=== PATIENT | female | born 1955 | race Caucasian/White ===

== ENCOUNTER → 2017-12-31 | Outpatient (CLI) | payer BC ==
--- NOTE | 2017-12-31 12:38 | BD ---
EXAMINATION TYPE: MG DEXA axial skeleton. DATE OF EXAM: 12/31/2017 COMPARISON: 01.26.2010 CLINICAL HISTORY: 62 YR OLD FEMALE: ICD-10 CODE: Z78.0 POST MENOPAUSAL W/O HRT Height: 61 Weight: 153 FRAX RISK QUESTIONS: Alcohol (3 or more units per day): NO Family History (Parent hip fracture): NO Glucocorticoids (More than 3mos): NO (Ex: prednisone, prednisolone, methylprednisolone, dexamethasone, and hydrocortisone). History of Fracture in Adulthood: YES Secondary Osteoporosis: NO 1. Type 1 Diabetes: NO 2. Hyperthyroidism: NO 3. Menopause before 45: NO..AT 44 YRS OLD 4. Malnutrition: NO 5. Chronic liver disease: NO Rheumatoid Arthritis: NO Current Tobacco Use: QUIT 6 MOS AGO RISK FACTORS HISTORY OF: RT ANKLE, > AGE 49 YRS OLD Family History of Osteoporosis: NO Active: GETTING THERE Diet low in dairy products/other sources of calcium: YES A BIT Postmenopausal woman: PARTIAL HYST AT 44 YRS OLD NO HORMONES Hyperparathyroidism: NO Adrenal Insufficiency: NO MEDICATIONS: Thyroid Medications: SYNTHROID, FOR ABOUT 8 YRS Additional Medications: WELLBUTRIN, ASPIRIN, CALCIUM AND VIT D, VALIUM PRN, VICODIN Additional History: TUMOR ON LT LUNG WITH PHANTOM PAINS EXAM MEASUREMENTS: Bone mineral densitometry was performed using the [employer]. Bone mineral density as measured about the Lumbar spine is: ----- L1-L4(G/cm2): 0.974 T Score Values are as follows: ----- L1: -2.5 ----- L2: -3.1 ----- L3: -1.7 ----- L4: -1.1 ----- L1-L4: -2.0 Bone mineral density has: Increased 4.1% SINCE 01.26.2010 Bone mineral density about the R hip (g/cm2): 0.951 Bone mineral density about the L hip (g/cm2): 0.942 T Score values are as follows: -----R Neck: -2.1 -----L Neck: -2.1 -----R Total: -0.4 -----L Total: -0.5 Bone mineral density has: Increased 0.3% SINCE 01.26.2010 FRAX%S: THERE IS A 5.9% CHNACE OF A MAJOR OSTEOPOROTIC FX AND A 2.1% FOR HIP FX....PROBABILITY OF FX IN 10 YRS TIME IMPRESSION: Osteopenia (T Score between -2.5 and -1) with regards to the bilateral hips and lumbar spine although values approach osteoporosis with regards to the lumbar spine. There is slightly increased risk of fracture and the patient may be considered for treatment. Re-Screen 2-5 years. NOTE: T-SCORE=SD OF THE YOUNG ADULT MEAN.
--- NOTE | 2018-01-01 12:05 | MM ---
Reason for exam: screening (asymptomatic). Last mammogram was performed 1 year and 5 months ago. History: Patient is postmenopausal. Physical Findings: A clinical breast exam by your physician is recommended on an annual basis and results should be correlated with mammographic findings. MG Screening Mammo w CAD Bilateral CC and MLO view(s) were taken. Prior study comparison: August 07, 2016, bilateral MG 3d diag mammo w/cad [facility]. February 26, 2015, bilateral MG screening mammo w CAD. The breast tissue is extremely dense which could obscure a lesion on mammography. Benign calcifications bilaterally. No suspicious abnormality. No significant changes when compared with prior studies. ASSESSMENT: Benign, BI-RAD 2 RECOMMENDATION: Routine screening mammogram of both breasts in 1 year.
== END | disposition home or self-care (01) ==
LOC: RADMAMWWP 08:09
PROVIDERS: ATTEND Obstetrics & Gynecology
DX: Z12.31 Encounter for screening mammogram for malignant neoplasm of breast (principal); M85.852 Other specified disorders of bone density and structure, left thigh; M85.851 Other specified disorders of bone density and structure, right thigh; M85.88 Other specified disorders of bone density and structure, other site; Z78.0 Asymptomatic menopausal state
CPT/HCPCS: 77067; 77080

== ENCOUNTER → 2019-04-07 | Outpatient (CLI) | payer MEDICARE ==
--- NOTE | 2019-04-08 15:02 | MR ---
EXAMINATION TYPE: MR cervical spine wo/w con DATE OF EXAM: 04/07/2019 COMPARISON: None HISTORY: Rt shoulder pain into rt arm and fingers, Headaches TECHNIQUE: Multiplanar, multisequence images of the cervical spine were acquired utilizing 7.5 mL intravenous Ga davist gadolinium contrast. Diffusion weighted imaging was performed. C2-C3: No evidence for degenerative disc disease. No disc bulge/herniation or protrusion. No Canal stenosis. Foramina are patent bilaterally. C3-C4: Posterior broad-based disc bulge causes minimal anterior mass effect on the thecal sac and may contact the cervical cord. No significant spinal stenosis or foraminal encroachment. C4-C5: Posterior broad-based disc bulge causes slight anterior mass effect on the thecal sac. No sign ificant stenosis or foraminal encroachment. C5-C6: Posterior broad-based disc bulge is noted. Uncovertebral joint hypertrophy encroaches mildly o n the trauma. No significant central stenosis. C6-C7: Posterior broad-based disc bulge causes slight anterior mass effect on the thecal sac. Uncover tebral joint hypertrophy encroaches somewhat on the foramina left greater than right. C7-T1: No evidence for degenerative disc disease. No disc bulge/herniation or protrusion. No Canal stenosis. Foramina are patent bilaterally. Cervical segments are intact. There is normal alignment. Cervical spinal cord is of normal signal. Craniovertebral junction relationships are within normal limits. Multilevel spondylosis is present. Some loss of disc height signal is present at the intervertebral levels especially C3-4, C4-5, C5-6 and C6-7. No abnormal enhancement following contrast instillation. IMPRESSION: Multilevel degenerative disc disease as described, multilevel foraminal encroachment.
== END | disposition home or self-care (01) ==
LOC: RADMRIMAIN 16:02
PROVIDERS: ATTEND Family Medicine
DX: M48.02 Spinal stenosis, cervical region (principal); M50.31 Other cervical disc degeneration, high cervical region
CPT/HCPCS: 72156; A9585

== ENCOUNTER → 2019-10-09 | Outpatient (CLI) | payer MEDICARE ==
--- NOTE | 2019-10-11 15:59 | MR ---
EXAMINATION TYPE: MR brain wo/w con DATE OF EXAM: 10/09/2019 COMPARISON: 03/07/2010 HISTORY: 64-year-old female with Memory loss. R41.3 TECHNIQUE: Multiplanar, multisequence images of the brain and brainstem were acquired before and aft er administration of 7 mL IV Gadavist. Diffusion weighted imaging is performed. FINDINGS: No evidence for acute infarction, hemorrhage, mass, mass effect, midline shift, herniation, effacemen t of basal cisterns, or extra-axial fluid collection. The ventricles and sulci are age-appropriate. Major intracranial flow voids are intact. T2/FLAIR weighted sequences show moderate to severe scattered bright white matter change both cerebra l hemispheres within the subcortical, deep white matter, and periventricular regions. Approximately 5 0 foci in the right and 60-70 foci of the left. These changes show mild progression from 03/07/2010. Midline structures demonstrate normal morphology. The craniocervical junction is normal. Post contrast images demonstrate no evidence of pathologic enhancement. Dural venous sinuses are pat ent. Rightward nasal septal deviation. The visualized sinuses are clear and the globes are intact. IMPRESSION: 1. Redemonstrated T2 bright white matter change with mild progression from 2009 now with moderate to severe scattered burden. Findings are nonspecific and probably relate to progressive changes of chron ic small vessel ischemic disease. Chronic migraines, Lyme's disease/vasculitis, and demyelinating dis ease are some differential considerations. 3. No enhancing intracranial lesions.
== END | disposition home or self-care (01) ==
LOC: RADMRIMAIN 15:01
PROVIDERS: ATTEND Psychiatry & Neurology Neurology
DX: G43.909 Migraine, unspecified, not intractable, without status migrainosus (principal); A69.20 Lyme disease, unspecified; I77.6 Arteritis, unspecified; G37.9 Demyelinating disease of central nervous system, unspecified; G54.0 Brachial plexus disorders; R41.3 Other amnesia
CPT/HCPCS: 70553; A9585

== ENCOUNTER → 2019-10-10 | Outpatient (CLI) | payer MEDICARE ==
--- NOTE | 2019-10-11 03:30 | MR ---
EXAMINATION TYPE: MR brachial plexus RT wo/w con DATE OF EXAM: 10/10/2019 COMPARISON: HISTORY: Rt side pain and numbness CONTRAST: Standard multiplanar, multisequence MRI departmental protocol utilizing 7 mL intravenous Gadavist samreen olinium contrast. FINDINGS: Cervical vertebra have fairly normal spacing and alignment for the patient's age. There is no compression fracture. There are small posterior disc bulges from C3 to C7. There is no evidence of cervical spinal stenosis. I see no cervical paraspinal mass. Contrast images show no pathologic enha ncement. There is normal contrast opacification of the carotid arteries and the vertebral arteries. T here is normal contrast opacification of the jugular veins. I see no focal bone destruction. IMPRESSION: Negative exam. No evidence of brachial plexus abnormality. No spinal stenosis. No fracture. IMPRESSION:
== END | disposition home or self-care (01) ==
LOC: RADMRIMAIN 16:33
PROVIDERS: ATTEND Psychiatry & Neurology Neurology
DX: R41.3 Other amnesia (principal)
CPT/HCPCS: 71552; A9585

== ENCOUNTER → 2020-08-09 | Outpatient (CLI) | payer MEDICARE ==
--- NOTE | 2020-08-10 12:02 | MM ---
Reason for exam: screening (asymptomatic). Last mammogram was performed 1 year and 3 months ago. History: Patient is postmenopausal. Physical Findings: A clinical breast exam by your physician is recommended on an annual basis and results should be correlated with mammographic findings. MG Screening Mammo w CAD Bilateral CC and MLO view(s) were taken. Prior study comparison: April 24, 2019, bilateral MG screening mammo w CAD. December 31, 2017, bilateral MG screening mammo w CAD. The breast tissue is heterogeneously dense. This may lower the sensitivity of mammography. Finding: There are typically benign vascular, dystrophic, round calcifications in both breasts. There is no discrete abnormality. ASSESSMENT: Benign, BI-RAD 2 RECOMMENDATION: Routine screening mammogram of both breasts in 1 year.
== END | disposition home or self-care (01) ==
LOC: RADMAMWWP 10:34
PROVIDERS: ATTEND Family Medicine
DX: Z12.31 Encounter for screening mammogram for malignant neoplasm of breast (principal)
CPT/HCPCS: 77067

== ENCOUNTER → 2022-08-01 | Outpatient (CLI) | payer MEDICARE ==
--- NOTE | 2022-08-02 08:16 | MM ---
Reason for Exam: Screening (asymptomatic). Last mammogram was performed 1 year(s) and 11 month(s) ago. Patient History: Menarche at age 14. First Full-Term at age 18. Right ovary removed at age 36. Hysterectomy at age 36. Postmenopausal. Risk Values: Liz 5 year model risk: 1.1%. NCI Lifetime model risk: 3.7%. Prior Study Comparison: 02/26/2015 Bilateral Screening Mammogram, [facility]. 08/07/2016 Bilateral Diagnostic Mammogram, [facility]. 12/31/2017 Bilateral Screening Mammogram, [facility]. 04/24/2019 Bilateral Screening Mammogram, [facility]. 08/09/2020 Bilateral Screening Mammogram, [facility]. Tissue Density: The breast tissue is heterogeneously dense. This may lower the sensitivity of mammography. Findings: Analyzed By CAD. There is benign appearing vascular calcification bilaterally redemonstrated. There is benign-appearing dystrophic calcification in the left breast again seen. There is no suspicious new group of microcalcifications or new suspicious mass in either breast. Overall Assessment: Benign, BI-RAD 2 Management: Screening Mammogram of both breasts in 1 year. A clinical breast exam by your physician is recommended on an annual basis and results should be correlated with mammographic findings. Electronically signed and approved by: Juvenal Parsons M.D.
== END | disposition home or self-care (01) ==
LOC: RADMAMWWP 08:32
PROVIDERS: ATTEND Family Medicine
DX: Z12.31 Encounter for screening mammogram for malignant neoplasm of breast (principal); Z78.0 Asymptomatic menopausal state
CPT/HCPCS: 77067

== ENCOUNTER → 2023-08-17 | Outpatient (CLI) | payer MEDICARE ==
--- NOTE | 2023-08-17 12:59 | CA ---
Exercise Stress Test Report Name: Char Lopez Exam Date: 08/17/2023 09:37 Exam Location: [place] Stress Ht (in): 62 Wt (lb): 145 BSA: 1.67 Ordering Phys: Samia Cooley MD Referring Phys: SAMIA COOLEY,, Technologist: Eliel Ball Age: 68 Gender: F : 1955 Procedure CPT: Indications: [id number] OTHER FATIGUE ICD-10 Codes: Patient History: Medications: Meds past 24 hrs: Pretest Chest Pain: STRESS TEST Axel Protocol Exercise Duration (min:sec): 03:[address] Depressions (mm): Angina Score: Lo Score: Resting HR (bpm): 106 Peak HR (bpm): 133 Resting BP (mmHg): 132 / 76 Peak BP (mmHg): 151 / 105 MPHR: 151 Target HR: 128 % MPHR: 88 METS: 4.7 Total Dose: Peak Dose: Atropine: Double Product: BP Response: Stress Termination: Reached target heart rate Stress Symptoms: SHORTNESS OF BREATH, DIZZINESS Stress Summary: ECG ANALYSIS Resting ECG: Stress ECG: CONCLUSIONS Patient exercised on a Axel protocol for only 3 minutes 43 seconds achieving a peak heart rate 128 beats a minute. Peak blood pressure 150 101 105 mmHg No procedures for ischemia No arrhythmias Very low workload level achieved during the stress test Dr. Cayetano Fernandez MD (Electronically Signed) Final Date: 17 August 2023 12:58
== END | disposition home or self-care (01) ==
LOC: RADNMMAIN 08:26
PROVIDERS: ATTEND Family Medicine
DX: R53.83 Other fatigue (principal); E78.00 Pure hypercholesterolemia, unspecified; R07.9 Chest pain, unspecified; Z82.49 Family history of ischemic heart disease and other diseases of the circulatory system
CPT/HCPCS: 93017

== ENCOUNTER → 2023-12-19 | Outpatient (CLI) | payer MEDICARE ==
--- NOTE | 2023-12-19 13:22 | MM ---
Reason for Exam: Screening (asymptomatic). Last mammogram was performed 1 year(s) and 5 month(s) ago. Patient History: Menarche at age 14. First Full-Term at age 18. Left ovary removed at age 40. Right ovary removed at age 36. Hysterectomy at age 36. Postmenopausal. Risk Values: Liz 5 year model risk: 1.1%. NCI Lifetime model risk: 3.5%. Prior Study Comparison: 04/24/2019 Bilateral Screening Mammogram, [facility]. 08/09/2020 Bilateral Screening Mammogram, [facility]. 08/01/2022 Bilateral MG screening mammo w CAD, [facility]. Tissue Density: There are scattered fibroglandular densities. Findings: Analyzed By CAD. There is no suspicious group of microcalcifications or new suspicious mass. Benign-appearing calcifications bilaterally. Overall Assessment: Benign, BI-RAD 2 Management: Screening Mammogram of both breasts in [address] [facility] will attempt to contact patient to return for supplemental views and ultrasound if indicated. Patient should continue monthly self-breast exams. A clinical breast exam by your physician is recommended on an annual basis. This exam should not preclude additional follow-up of suspicious palpable abnormalities. Note on Liz scores and lifetime risk: 1. A Liz score greater than 3% is considered moderate risk. If this is the case, consider specialist referral to assess eligibility for a risk reducing agent. 2. If overall lifetime risk for the development of breast cancer is 20% or higher, the patient may qualify for future screening with alternating mammogram and breast MRI. Electronically signed and approved by: Elie Mcgowan DO
== END | disposition home or self-care (01) ==
LOC: RADMAMWWP 07:05
PROVIDERS: ATTEND Family Medicine
DX: Z12.31 Encounter for screening mammogram for malignant neoplasm of breast (principal); Z78.0 Asymptomatic menopausal state
CPT/HCPCS: 77067

== ENCOUNTER → 2025-02-04 | Outpatient (CLI) | payer MEDICARE ==
--- NOTE | 2025-02-04 07:31 | MM ---
Reason for Exam: Screening (asymptomatic). Last mammogram was performed 1 year(s) and 2 month(s) ago. Patient History: Menarche at age 14. First Full-Term at age 18. Left ovary removed at age 40. Right ovary removed at age 36. Hysterectomy at age 36. Postmenopausal. Risk Values: Liz 5 year model risk: 0.8%. NCI Lifetime model risk: 2.3%. Prior Study Comparison: 08/09/2020 Bilateral Screening Mammogram, [facility]. 08/01/2022 Bilateral MG screening mammo w CAD, [facility]. 12/19/2023 Bilateral MG screening mammo w CAD, [facility]. Tissue Density: The breasts are heterogeneously dense, which may obscure small masses. Findings: Analyzed By CAD. There is no suspicious group of microcalcifications or new suspicious mass in either breast. Overall Assessment: Benign, BI-RAD 2 Management: Screening Mammogram of both breasts in 1 year. . Patient should continue monthly self-breast exams. A clinical breast exam by your physician is recommended on an annual basis. This exam should not preclude additional follow-up of suspicious palpable abnormalities. Note on Liz scores and lifetime risk: 1. A Liz score greater than 3% is considered moderate risk. If this is the case, consider specialist referral to assess eligibility for a risk reducing agent. 2. If overall lifetime risk for the development of breast cancer is 20% or higher, the patient may qualify for future screening with alternating mammogram and breast MRI. [facility], , 02/04/2025 7:28 AM. Electronically signed and approved by: Eris Ren M.D. Radiologis
== END | disposition home or self-care (01) ==
LOC: RADMAMWWP 07:05
PROVIDERS: ATTEND Family Medicine
DX: Z12.31 Encounter for screening mammogram for malignant neoplasm of breast (principal); R92.333 Mammographic heterogeneous density, bilateral breasts; Z78.0 Asymptomatic menopausal state
CPT/HCPCS: 77067

== ENCOUNTER → 2025-03-09 | Outpatient (CLI) | payer MEDICARE ==
[2025-03-09 15:05] LABS: HCT 48.5 % (37.2-46.3); HGB 15.7 g/dL (12.0-15.0); MCH 31.8 pg (27.0-32.0); MCHC 32.4 g/dL (32.0-37.0); MCV 98.4 FL (80.0-97.0); Mean Platelet Volume 9.2 FL (9.5-12.2); NRBC Per 100 WBC 0 X 10*3/uL (0.00-0.01); Platelet Count 321 X 10*3/uL (140-440); RBC 4.93 X 10*6/uL (4.10-5.20); WBC 9.47 X 10*3/uL (4.50-10.00)
[2025-03-09 15:26] LABS: Blood Urea Nitrogen 21.1 mg/dL (9.0-27.0); Carbon Dioxide 24.3 mmol/L (21.6-31.8); Chloride 106 mmol/L (96-109); Potassium 4.1 mmol/L (3.5-5.5); Sodium 143 mmol/L (135-145)
== END | disposition home or self-care (01) ==
LOC: LABWHC1 10:13
PROVIDERS: ATTEND Internal Medicine
DX: Z01.812 Encounter for preprocedural laboratory examination (principal); I25.10 Atherosclerotic heart disease of native coronary artery without angina pectoris; R06.02 Shortness of breath; R07.9 Chest pain, unspecified
CPT/HCPCS: 36415; 80051; 82565; 84520; 85027

== ENCOUNTER 2025-03-17 06:27 | Day surgery (SDC) | payer MEDICARE ==
[2025-03-13 11:52] VITALS: BMI 27.3
[~2025-03-17 06:27] MED LIST: ALPRAZolam 0.25 MG TAB PO PRN; ALPRAZolam 0.5 MG TAB PO PRN; HEPARIN SODIUM,PORCINE (1 ML) 2,500 UNIT in SODIUM CHLORIDE 0.9% 250 ML IRRIGATION PRN; HEPARIN SODIUM,PORCINE 10,000 UNIT in SODIUM CHLORIDE 0.9% 1,000 ML IRRIGATION PRN; NITROGLYCERIN SL TABS 0.4 MG TAB SUBLINGUAL PRN
[2025-03-17] MEDS: SODIUM CHLORIDE 0.9% 1,000 ML in EMPTY BAG 1 BAG IV SCH (06:50)
[2025-03-17] MEDS: IV FLUID CONTINUATION 1,000 ML IV ONE (06:51)
[2025-03-17] MEDS: ASPIRIN 325 MG TAB PO STA (07:14)
[2025-03-17 07:16] VITALS: RESP 16; TEMP 97.9
[2025-03-17] MEDS: fentaNYL (PF) 50 MCG/ML 2 ML AMP IVP ONE (07:36)
[2025-03-17] MEDS: LIDOCAINE 1% INJ 10MG/ML (20 ML MDV) SQ ONE (07:37)
[2025-03-17] MEDS: VERAPAMIL SYRINGE (5 MG/10 ML) INTRAARTER ONE (07:39)
[2025-03-17] MEDS: MIDAZOLAM 2 MG/2 ML VIAL IVP ONE (07:42)
[2025-03-17] MEDS: HEPARIN SODIUM (1,000 UNIT/ML) 1,000 UNIT in SODIUM CHLORIDE 0.9% 1,000 ML IRRIGATION ONE (07:44)
[2025-03-17] MEDS: HEPARIN SODIUM 1,000 UN/ML (10ML VL) IVP ONE (07:44)
[2025-03-17] MEDS: HEPARIN SODIUM,PORCINE (1 ML) 2,500 UNIT in SODIUM CHLORIDE 0.9% 250 ML IRRIGATION ONE (07:45)
[2025-03-17] MEDS: ADENOSINE 90 MG in SODIUM CHLORIDE 0.9% 60 ML IVP ONE (08:05)
[2025-03-17] MEDS: IOPAMIDOL-370 100ML BTL INJ ONE (08:06)
[2025-03-17] MEDS ORDERED: diazePAM 5 MG TAB PO PRN (08:15)
[2025-03-17] MEDS ORDERED: RX INFO: IV CONTRAST WAS GIVEN 1 EACH MISC MISCELLANE PRN (08:16)
[2025-03-17] MEDS: SODIUM CHLORIDE 0.9% 1,000 ML IV SCH (08:33)
[2025-03-17] MEDS: FUROSEMIDE 20 MG TAB PO SCH (11:58)
[2025-03-17 12:28] VITALS: BP 113/60; PULSE 58
--- NOTE | 2025-03-17 13:34 | P.CARDCATH ---
Description of Procedure: PROCEDURES PERFORMED: Left heart catheterization, bilateral coronary angiography, ultrasound guided arterial access, iFR, RFR, CFR, IMR of LAD INDICATION: CAD by CTA, near Heart Association class III-IV symptoms with angina CONSENT:I have discussed the risks, benefits and alternative therapies for the above-mentioned procedure and for both sedation/analgesia as well as necessary blood product administration, if indicated, as they pertain to this patient. The patient has indicated understanding and acceptance of the risks and p rocedures discussed. PROCEDURE: After the risks, benefits and alternatives of the above mentioned procedure explained in detail with the patient, informed consent was obtained. Patient was taken to the catheterization lab and prepped and draped in usual fashion. Ultrasound guidance was used to assess for arterial access. 1% lidocaine was used to anesthetize the right radial artery. A 6-B[place]an sheath was placed in the right radial artery using modified Seldinger technique and ultrasound guidance. Left coronary angiography was performed with a 5-[place] JL 3.5 catheter and right coronary angiography was performed with a 5-[place] FR5 catheter in various views. A 5-[place] FR5 catheter was inserted into the left ventricle and pressure measurements were obtained. The decision was made to perform functional assessment of the LAD. Heparin was given. Using the FL 3.5 catheter, a 0.014 pressure wire was advanced into the left main and normalized. It was then advanced in the mid LAD. iFR, CFR, IMR, FFR were performed. The wire was removed. iFR 0.92, FFR 0.87, CFR 1.8, IMR 33. The right radial sheath was removed and a TR band was placed with hemostasis achieved. The patient tolerated the procedure well. Patient was transported back to the post catheterization holding area in stable condition. Conscious Sedation: Patient was monitored under the direct supervision of myself for conscious sedation using Versed and fentanyl for a total duration of 30 minutes HEMODYNAMICS: Aorta: 138/72 LV: 130/14, LVEDP 28 SELECTIVE CORONARY ARTERIOGRAPHY: LEFT MAIN: The left main is a large caliber vessel which bifurcates into the LAD and circumflex. There is no significant stenosis. LEFT ANTERIOR DESCENDING CORONARY ARTERY: LAD is a large caliber vessel which wraps around to the apex. There is a mid LAD 20% stenosis otherwise normal LEFT CIRCUMFLEX CORONARY ARTERY: Left circumflex is a moderate caliber vessel without significant stenosis. RIGHT CORONARY ARTERY: The right coronary artery is a large caliber vessel which gives off a PDA and PLV branch and is the dominant vessel. There is no significant stenosis. FINAL IMPRESSION: 1. Relatively normal coronary arteries other than mid LAD 20% stenosis 2. Significantly elevated left sided filling pressures 3. Normal IFR/FFR 4. Abnormal CFR and IMR consistent with microvascular dysfunction PLAN: 1. Aggressive risk factor modification per most recent ACC/AHA guidelines. 2. Patient with significantly elevated filling pressures and attempt diuretics. Additionally abnormal CFR and IMR consistent with microvascular dysfunction and may consider antianginals if continues to be symptomatic.
[2025-03-17] MEDS ORDERED: ATORVASTATIN 20 MG TAB PO SCH (21:00)
[2025-03-17] MEDS ORDERED: MELATONIN 5 MG TABLET PO SCH (21:00)
[2025-03-17] MEDS ORDERED: buPROPion SR 100 MG TABLET.ER PO SCH (21:00)
[2025-03-18] MEDS ORDERED: LEVOTHYROXINE 100 MCG TAB PO SCH (06:30)
[2025-03-18] MEDS ORDERED: METOPROLOL SUCCINATE (ER) 25 MG TAB.ER.24H PO SCH (09:00)
[2025-03-18] MEDS ORDERED: ASPIRIN 81 MG PO SCH (09:00)
[2025-03-18] MEDS ORDERED: NON FORMULARY DRUG (Fluticasone/Umeclidin/Vilanter [Trelegy Ellipta 100-62.5-25] 1 EACH Bl INHALATION SCH (09:00)
== END 2025-03-17 12:19 | disposition home or self-care (01) ==
LOC: CATHCVL 06:27
PROVIDERS: ATTEND Internal Medicine
DX: I25.119 Atherosclerotic heart disease of native coronary artery with unspecified angina pectoris (principal); E03.9 Hypothyroidism, unspecified; E78.5 Hyperlipidemia, unspecified; F41.9 Anxiety disorder, unspecified; F32.A Depression, unspecified; Z79.899 Other long term (current) drug therapy; Z87.891 Personal history of nicotine dependence; Z79.82 Long term (current) use of aspirin; Z79.890 Hormone replacement therapy
CPT/HCPCS: 93458; 93799; 99152; 99153; C1769 ×3; C1894; J2250; J1644 ×2; J2003; J3010; J0153; Q9967